=== PATIENT | male | born 1975 | race African-American/Black ===

== ENCOUNTER 2017-08-24 11:09 | Emergency (ER) | payer OTHER ==
[2017-08-24] MEDS ORDERED: Ketorolac 60 MG/2 ML SDV IM ONE (11:45)
--- NOTE | 2017-08-24 11:48 | EDM.PDOC ---
ED HPI GENERAL MEDICAL PROBLEM - General Chief Complaint: Fever Stated Complaint: PT HAS FLU SYMPTOMS Time Seen by Provider: 08/24/17 11:38 - History of Present Illness INITIAL COMMENTS - FREE TEXT/NARRATIVE: HISTORY AND PHYSICAL: History of present illness: The patient is a 42-year-old male with no stated medical history who presents with complaints of 6 days of body aches malaise and fevers up to 102 occasional cough and sore throat. The patient says he did not get his influenza shot this year. He has not had any productive cough and the cough is just been intermittent and he has not had a runny nose headache or neck pain. He has had a sore throat for the last couple of days and his temperature last evening was 102 for which she took medications. Patient has not had any abdominal complaints vomiting or diarrhea and has been eating and drinking normally. He says his urine is very dark and there looked like there was some blood in it and is concerned about that. Has no testicular pain or swelling and no flank pain. Patient says he has had UTIs in the past when he used to drink a lot of caffeinated products but he does not do that anymore. Patient also states that he had mononucleosis when he was in the . Review of systems: As per history of present illness and below otherwise all systems reviewed and negative. Past medical history: As per history of present illness and as reviewed below otherwise noncontributory. Surgical history: As per history of present illness and as reviewed below otherwise noncontributory. Social history: No reported history of drug or alcohol abuse. Family history: As per history of present illness and as reviewed below otherwise noncontributory. Physical exam: Gen.: Well-developed well-nourished male who is nontoxic and speaking clearly and easily in the ED. He moves without distress and vital signs are reviewed by me HEENT: Atraumatic, normocephalic, pupils reactive, negative for conjunctival pallor or scleral icterus, mucous membranes moist, throat clear of exudates but there is some oropharyngeal erythema, there is no cervical adenopathy or nuchal rigidity, neck supple, nontender, trachea midline. Lungs: Clear to auscultation, breath sounds equal bilaterally, chest nontender. Wheezing stridor or work of breathing Heart: S1S2, regular, negative for clicks, rubs, or JVD. Abdomen: Soft, nondistended, nontender. Negative for masses or hepatosplenomegaly. Negative for costovertebral tenderness. Pelvis: Stable nontender. Genitourinary: Deferred. Rectal: Deferred. Extremities: Atraumatic, negative for cords or calf pain. Neurovascular unremarkable. Neuro: Awake, alert, oriented. Cranial nerves II through XII unremarkable. Cerebellum unremarkable. Motor and sensory unremarkable throughout. Exam nonfocal. Diagnostics: Rapid strep influenza chest x-ray CBC CMP lactic acid UA urine culture GC/ Chlamydia Therapeutics: Toradol Rocephin and Zithromax I discussed with the patient at length his testing results including his UA results. Urine culture was sent as well as GC chlamydia and he is comfortable with that. I have advised that he follow-up with Dr. Marsh our urologist as this is not the patient's first "UTI" or the patient states monogamous with his girlfriend has been advised to refrain from sexual intercourse for the next 5 days and to continue to monitor his temperature push hydration and take antibiotics he has been prescribed for home. Impression: UTI/viral illness with fever Definitive disposition and diagnosis as appropriate pending reevaluation and review of above. Generalized Pain Score (Numeric/FACES): 6 - Related Data Allergies Allergy/AdvReac Type Severity Reaction Status Date / Time No Known Allergies Allergy Verified 08/24/17 11:26 Home Meds: Home Meds . [No Known Home Meds] 08/24/17 [History] Past Medical History - Past Health History Medical/Surgical History: Denies Medical/Surgical History Social & Family History - Tobacco Use Smoking Status *Q: Never Smoker Second Hand Smoke Exposure: No - Caffeine Use Caffeine Use: Reports: Tea - Recreational Drug Use Recreational Drug Use: No ED ROS GENERAL - Review of Systems Review Of Systems: ROS reveals no pertinent complaints other than HPI. ED EXAM, GENERAL - Physical Exam Exam: See Below (see Dictation) Course - Vital Signs Last Recorded V/S: Last Vital Signs Temp 37.3 C 08/24/17 11:27 Pulse 89 08/24/17 11:27 Resp 18 08/24/17 11:27 BP 142/82 H 08/24/17 11:27 Pulse Ox 98 08/24/17 11:27 - Orders/Labs/Meds Orders: Active Orders 24 hr Category Date Time Status Chest 2V [CR] Stat Exams 08/24/17 11:44 Taken CHLAMYDIA AND GONORRHEA BY TMA Stat Lab 08/24/17 11:45 Received CULTURE STREP A CONFIRMATION [RM] Stat Lab 08/24/17 11:45 Results CULTURE URINE [] Stat Lab 08/24/17 11:45 Received STREP SCRN A RAPID W CULT CONF [] Stat Lab 08/24/17 11:45 Results Labs: Laboratory Tests 08/24/17 08/24/17 08/24/17 Range/Units 11:45 11:53 11:53 WBC 12.42 H (4.0-11.0) K/uL RBC 5.02 (4.50-5.90) M/uL Hgb 13.7 (13.0-17.0) g/dL Hct 40.6 (38.0-50.0) % MCV 80.9 (80.0-98.0) fL MCH 27.3 (27.0-32.0) pg MCHC 33.7 (31.0-37.0) g/dL RDW Std Deviation 39.8 (28.0-62.0) fl RDW Coeff of Keyon 13 (11.0-15.0) % Plt Count 176 (150-400) K/uL MPV 9.10 (7.40-12.00) fL Neut % (Auto) 87.7 H (48.0-80.0) % Lymph % (Auto) 7.3 L (16.0-40.0) % Guthrie % (Auto) 4.8 (0.0-15.0) % Eos % (Auto) 0.1 (0.0-7.0) % Baso % (Auto) 0.1 (0.0-1.5) % Neut # (Auto) 10.9 H (1.4-5.7) K/uL Lymph # (Auto) 0.9 (0.6-2.4) K/uL Guthrie # (Auto) 0.6 (0.0-0.8) K/uL Eos # (Auto) 0.0 (0.0-0.7) K/uL Baso # (Auto) 0.0 (0.0-0.1) K/uL Nucleated RBC % 0.0 /100WBC Nucleated RBCs # 0 K/uL Lactate (0.20-2.00) mmol/L Sodium 134 L (136-146) mmol/L Potassium 4.1 (3.5-5.1) mmol/L Chloride 102 (98-110) mmol/L Carbon Dioxide 23 (21-31) mmol/L BUN 9 (6.0-23.0) mg/dL Creatinine 1.3 (0.6-1.5) mg/dL Est Cr Clr Drug Dosing 87.82 mL/min Estimated GFR (MDRD) > 60.0 ml/min Glucose 102 (60-110) mg/dL Calcium 9.5 (8.8-10.8) mg/dL Total Bilirubin 1.1 (0.1-1.5) mg/dL AST 50 H (5-40) IU/L ALT 60 H (8-54) IU/L Alkaline Phosphatase 88 (40-150) Total Protein 7.5 (6.0-8.0) g/dL Albumin 4.0 (3.5-5.0) g/dL Globulin 3.5 (2.0-3.5) g/dL Albumin/Globulin Ratio 1.1 L (1.3-2.8) Urine Color YELLOW Urine Appearance CLEAR Urine pH 5.5 (5.0-8.0) Ur Specific Greenwood <= 1.005 (1.001-1.035) Urine Protein NEGATIVE (NEGATIVE) mg/dL Urine Glucose (UA) NEGATIVE (NEGATIVE) mg/dL Urine Ketones NEGATIVE (NEGATIVE) mg/dL Urine Occult Blood SMALL H (NEGATIVE) Urine Nitrite NEGATIVE (NEGATIVE) Urine Bilirubin NEGATIVE (NEGATIVE) Urine Urobilinogen 0.2 (<2.0) EU/dL Ur Leukocyte Esterase MODERATE (NEGATIVE) Urine RBC 0-1 (0-2/HPF) Urine WBC 15-20 (0-5/HPF) Ur Epithelial Cells RARE (NONE-FEW) Urine Bacteria 1+ H (NEGATIVE) 08/24/17 Range/Units 11:53 WBC (4.0-11.0) K/uL RBC (4.50-5.90) M/uL Hgb (13.0-17.0) g/dL Hct (38.0-50.0) % MCV (80.0-98.0) fL MCH (27.0-32.0) pg MCHC (31.0-37.0) g/dL RDW Std Deviation (28.0-62.0) fl RDW Coeff of Keyon (11.0-15.0) % Plt Count (150-400) K/uL MPV (7.40-12.00) fL Neut % (Auto) (48.0-80.0) % Lymph % (Auto) (16.0-40.0) % Guthrie % (Auto) (0.0-15.0) % Eos % (Auto) (0.0-7.0) % Baso % (Auto) (0.0-1.5) % Neut # (Auto) (1.4-5.7) K/uL Lymph # (Auto) (0.6-2.4) K/uL Guthrie # (Auto) (0.0-0.8) K/uL Eos # (Auto) (0.0-0.7) K/uL Baso # (Auto) (0.0-0.1) K/uL Nucleated RBC % /100WBC Nucleated RBCs # K/uL Lactate 0.9 (0.20-2.00) mmol/L Sodium (136-146) mmol/L Potassium (3.5-5.1) mmol/L Chloride (98-110) mmol/L Carbon Dioxide (21-31) mmol/L BUN (6.0-23.0) mg/dL Creatinine (0.6-1.5) mg/dL Est Cr Clr Drug Dosing mL/min Estimated GFR (MDRD) ml/min Glucose (60-110) mg/dL Calcium (8.8-10.8) mg/dL Total Bilirubin (0.1-1.5) mg/dL AST (5-40) IU/L ALT (8-54) IU/L Alkaline Phosphatase (40-150) Total Protein (6.0-8.0) g/dL Albumin (3.5-5.0) g/dL Globulin (2.0-3.5) g/dL Albumin/Globulin Ratio (1.3-2.8) Urine Color Urine Appearance Urine pH (5.0-8.0) Ur Specific Greenwood (1.001-1.035) Urine Protein (NEGATIVE) mg/dL Urine Glucose (UA) (NEGATIVE) mg/dL Urine Ketones (NEGATIVE) mg/dL Urine Occult Blood (NEGATIVE) Urine Nitrite (NEGATIVE) Urine Bilirubin (NEGATIVE) Urine Urobilinogen (<2.0) EU/dL Ur Leukocyte Esterase (NEGATIVE) Urine RBC (0-2/HPF) Urine WBC (0-5/HPF) Ur Epithelial Cells (NONE-FEW) Urine Bacteria (NEGATIVE) Meds: Medications Discontinued Medications Generic Name Dose Route Start Last Admin Trade Name Olegario PRN Reason Stop Dose Admin Azithromycin 1,000 mg 08/24/17 13:06 Zithromax PO 08/24/17 13:07 ONETIME ONE Ceftriaxone Sodium 250 mg/ 1 mls @ 1 mls/sec 08/24/17 13:06 Lidocaine HCl IM 08/24/17 13:07 ONETIME ONE Ketorolac Tromethamine 60 mg 08/24/17 11:45 08/24/17 12:04 Toradol IM 08/24/17 11:46 60 mg ONETIME ONE Administration Departure - Departure Time of Disposition: 13:09 Disposition: Home, Self-Care 01 Condition: Good Clinical Impression: Viral illness UTI (urinary tract infection) Qualifiers: Urinary tract infection type: site unspecified Hematuria presence: without hematuria Qualified Code(s): N39.0 - Urinary tract infection, site not specified - Discharge Information Referrals: PCP,None [Primary Care Provider] - Forms: ED Department Discharge Additional Instructions: The following information is given to patients seen in the emergency department who are being discharged to home. This information is to outline your options for follow-up care. We provide all patients seen in our emergency department with a follow-up referral. The need for follow-up, as well as the timing and circumstances, are variable depending upon the specifics of your emergency department visit. If you don't have a primary care physician on staff, we will provide you with a referral. We always advise you to contact your personal physician following an emergency department visit to inform them of the circumstance of the visit and for follow-up with them and/or the need for any referrals to a consulting specialist. The emergency department will also refer you to a specialist when appropriate. This referral assures that you have the opportunity for followup care with a specialist. All of these measure are taken in an effort to provide you with optimal care, which includes your followup. Under all circumstances we always encourage you to contact your private physician who remains a resource for coordinating your care. When calling for followup care, please make the office aware that this follow-up is from your recent emergency room visit. If for any reason you are refused follow-up, please contact the [facility] emergency department at and ask to speak to the emergency department charge nurse. [facility] Primary care- Internal Medicine and [facility] [address] [place] [id number] [facility]-Urology [address] [place] [id number] Please push hydration and he will be contacted if any of your urine test yield a change in care plan. Please take antibiotics as prescribed. Please take Tylenol and ibuprofen for body aches and fevers in the appropriate doses. Rest and please contact our urologist as well as one of our primary care physicians for reevaluation and further care Return to ER as needed and as discussed - My Orders Last 24 Hours: My Active Orders 08/24/17 11:44 Chest 2V [CR] Stat 08/24/17 11:45 CHLAMYDIA AND GONORRHEA BY TMA Stat CULTURE STREP A CONFIRMATION [RM] Stat CULTURE URINE [RM] Stat STREP SCRN A RAPID W CULT CONF [RM] Stat - Assessment/Plan Last 24 Hours: My Active Orders 08/24/17 11:44 Chest 2V [CR] Stat 08/24/17 11:45 CHLAMYDIA AND GONORRHEA BY TMA Stat CULTURE STREP A CONFIRMATION [RM] Stat CULTURE URINE [RM] Stat STREP SCRN A RAPID W CULT CONF [RM] Stat
[2017-08-24 12:24] LABS: CHLORIDE,CL 102 mmol/L (98-110); SODIUM,NA 134 mmol/L (136-146)
[2017-08-24] MEDS ORDERED: Azithromycin 250 MG Tab PO ONE (13:06)
[2017-08-24] MEDS ORDERED: cefTRIAXone 250 MG in Lidocaine 1% 1 ML IM ONE (13:06)
--- NOTE | 2017-08-26 14:09 | CR ---
EXAM DATE: 08/24/17 PATIENT'S AGE: 42 Patient: MEDINA MUÑOZ Facility: [place], [place] Site . Site : [id number] Study: XRay Chest [id number]/[id number] 12:21:45 PM Ordering Physician: Doctor Caba Final Report: CHEST 1 VIEW AP INDICATION: Chest pain and short of breath. IMPRESSION: Normal heart size and vascular pattern. Lungs are clear of focal opacities. No pneumothorax or pleural abnormality. Dictated by David Russo MD @ Aug 24 2017 12:41PM ----- ADDENDUM ----- CORRECTED REPORT CHEST 2 VIEWS INDICATION: Chest pain short of breath. IMPRESSION: Normal heart size and vascular pattern. Lungs are clear. No pneumothorax or pleural abnormality. Dictated by David Russo MD @ Aug 24 2017 12:49PM (Electronic Signature) Report Signed by Proxy. ELIU
== END 2017-08-24 13:42 | disposition home or self-care (01) ==
LOC: MW.ED 11:09
DX: N39.0 Urinary tract infection, site not specified (principal); B34.9 Viral infection, unspecified
CPT/HCPCS: 36415; 71046; 80053; 81001; 83605; 85025; 87081; 87086; 87491; 87591; 87804; 87880; 96372; 99283; A9270; J0696; J1885; 87088; 87186; J2001